=== PATIENT | female | born 1965 | race Caucasian/White ===

== ENCOUNTER → 2019-01-26 12:28 | Outpatient (CLI) | payer BC, SELFPAY ==
[2019-01-26 14:41] LABS: Amphetamine/Metha Screen,Urine Positive ng/mL (<1000); Barbiturates Screen,Urine Negative ng/mL (<200); Benzodiazepines Screen,Urine Negative ng/mL (<200); Cannabinoid Screen,Urine Negative ng/mL (<50); Cocaine Screen,Urine Negative ng/mL (<300); Methadone Screen,Urine Negative ng/mL (<300); Opiate Screen,Urine Negative ng/mL (<300); Phencyclidine Screen,Urine Negative ng/mL (<25)
== END ==
PROVIDERS: Visit Provider Emergency Medicine
DX: F41.9 Anxiety disorder, unspecified (principal)
CPT/HCPCS: 80305

== ENCOUNTER → 2019-03-15 11:02 | Outpatient (CLI) | payer BC, SELFPAY ==
--- NOTE | 2019-03-15 11:04 | MM_ITS ---
MM Dig screening mamm BI w/CAD ORDERING PHYSICIAN : John Raymundo MD PATIENT AGE: 54 years GENDER: Female COMPARISON: . Prior studies have been purged. None available. Going to apartment tilt 4:00 PM INDICATION: Routine screening. Limited history. No new complaints. No hormones Provided HISTORY states she states biopsy scar at 2:30 position right breast Images suggest previous percutaneous biopsy of nodule at inferior central breast Family history. Noncontributory TECHNIQUE: Standard CC and MLO images were obtained. R2 CAD reviewed. FINDINGS: . Moderate asymmetry heterogeneous breast . No prior for for comparison RIGHT BREAST: 14 mm ovoid nodule at the central breast slightly towards 6:00. Appears to be a metallic marker from previous percutaneous biopsy at the superior aspect of this nodule. It is likely a fibroadenoma that has been previously biopsied but I have no information in this regard. Since prior films of encouraged... Suggest patient return for CC, MLO spot views along with full 90 degree view right breast, followed by ultrasound right breast to better reestablish baseline character & size of this nodule for future follow-up. Attempting to obtain prior reports & additional information LEFT BREAST : Region of denser breast towards superior breast/upper outer quadrant. Most likely summation of dense asymmetric fibroglandular elements However this region would also benefit a from follow-up spot CC and MLO view along with full 90 degree and axillary cc view is followed by left breast ultrasound when patient returns. This region labeled X & most likely reflects asymmetric denser fibroglandular tissue-it does seem to dissipate noting from the MLO to the cc view supporting fibroglandular tissue . 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 Previous percutaneous biopsy clip in this area. However no prior studies or information available currently. Therefore Would suggest a follow-up ultrasound and spot views to reestablish size & baseline character (. Also attempting to obtain prior report & records is still available and old [employer] ) Left mammogram . Relative increased density superior left breast, most likely reflects summation of dense asymmetric fibroglandular elements. Unlikely lesion but when patient returns with suggest spot views and ultrasound of this region left breast as well for further evaluation BI-RADS Category: 0 Need Additional Imaging Evaluation RECOMMENDED FOLLOW-UP: IMM - IMMEDIATE FOLLOW-UP RECOMMENDED Recommended Additional spot views and ultrasound both right and left breast (A letter has been sent to the patient regarding results of the study.)
== END ==
PROVIDERS: PCP Nurse Practitioner Family; Visit Provider Emergency Medicine
DX: Z12.31 Encounter for screening mammogram for malignant neoplasm of breast (principal)
CPT/HCPCS: 77067

== ENCOUNTER → 2019-03-27 13:47 | Outpatient (CLI) | payer BC, SELFPAY ==
[2019-03-27 15:46] LABS: Amphetamine/Metha Screen,Urine Positive ng/mL (<1000); Barbiturates Screen,Urine Negative ng/mL (<200); Benzodiazepines Screen,Urine Negative ng/mL (<200); Cannabinoid Screen,Urine Negative ng/mL (<50); Cocaine Screen,Urine Positive ng/mL (<300); Methadone Screen,Urine Negative ng/mL (<300); Opiate Screen,Urine Negative ng/mL (<300); Phencyclidine Screen,Urine Negative ng/mL (<25)
[2019-04-03 11:11] LABS: Benzoylecgonine (GC/MS) 300 ng/mL (Cutoff=150); Cocaine + Metabolite Positive (.)
== END ==
PROVIDERS: Visit Provider Physician Assistant
DX: F90.9 Attention-deficit hyperactivity disorder, unspecified type (principal); Z79.899 Other long term (current) drug therapy
CPT/HCPCS: 80305; 80353

== ENCOUNTER → 2019-04-16 12:22 | Outpatient (CLI) | payer BC, SELFPAY ==
[2019-04-16 14:59] LABS: Amphetamine/Metha Screen,Urine Negative ng/mL (<1000); Barbiturates Screen,Urine Negative ng/mL (<200); Benzodiazepines Screen,Urine Negative ng/mL (<200); Cannabinoid Screen,Urine Negative ng/mL (<50); Cocaine Screen,Urine Negative ng/mL (<300); Methadone Screen,Urine Negative ng/mL (<300); Opiate Screen,Urine Negative ng/mL (<300); Phencyclidine Screen,Urine Negative ng/mL (<25)
== END ==
PROVIDERS: PCP Nurse Practitioner Family; Visit Provider Emergency Medicine
DX: R92.8 Other abnormal and inconclusive findings on diagnostic imaging of breast (principal); F90.9 Attention-deficit hyperactivity disorder, unspecified type
CPT/HCPCS: 80305

== ENCOUNTER → 2019-04-16 14:12 | Outpatient (CLI) | payer BC, SELFPAY | PROVIDERS: Visit Provider Emergency Medicine | DX: Z79.899 Other long term (current) drug therapy (principal) | CPT/HCPCS: 80305 ==

== ENCOUNTER → 2019-06-29 13:24 | Outpatient (CLI) | payer BC, SELFPAY ==
[2019-06-29 14:15] LABS: Amphetamine/Metha Screen,Urine Negative ng/mL (<1000); Barbiturates Screen,Urine Negative ng/mL (<200); Benzodiazepines Screen,Urine Negative ng/mL (<200); Cannabinoid Screen,Urine Negative ng/mL (<50); Cocaine Screen,Urine Negative ng/mL (<300); Methadone Screen,Urine Negative ng/mL (<300); Opiate Screen,Urine Negative ng/mL (<300); Phencyclidine Screen,Urine Negative ng/mL (<25)
[2019-07-10 14:09] LABS: Amphetamines Negative (Cutoff=500)
== END ==
PROVIDERS: Visit Provider Emergency Medicine
DX: Z79.899 Other long term (current) drug therapy (principal)
CPT/HCPCS: 80305; 80324

== ENCOUNTER → 2019-08-27 17:55 | Outpatient (CLI) | payer BC, SELFPAY ==
[2019-08-27 19:04] LABS: Amphetamine/Metha Screen,Urine Positive ng/mL (<1000); Barbiturates Screen,Urine Negative ng/mL (<200); Benzodiazepines Screen,Urine Negative ng/mL (<200); Cannabinoid Screen,Urine Negative ng/mL (<50); Cocaine Screen,Urine Negative ng/mL (<300); Methadone Screen,Urine Negative ng/mL (<300); Opiate Screen,Urine Negative ng/mL (<300); Phencyclidine Screen,Urine Negative ng/mL (<25)
== END ==
PROVIDERS: Visit Provider Emergency Medicine
DX: Z79.899 Other long term (current) drug therapy (principal)
CPT/HCPCS: 80305

== ENCOUNTER → 2020-09-16 17:53 | Outpatient (CLI) | payer BC, SELFPAY ==
[2020-09-16 20:18] LABS: Amphetamine/Metha Screen,Urine Positive ng/ml (<1000); Barbiturates Screen,Urine Negative ng/ml (<200)
[2020-09-16 20:19] LABS: Benzodiazepines Screen,Urine Negative ng/ml (<200); Cannabinoid Screen,Urine Negative ng/ml (<50)
[2020-09-16 20:20] LABS: Cocaine Screen,Urine Negative ng/ml (<300)
[2020-09-16 20:21] LABS: Methadone Screen,Urine Negative ng/ml (<300); Opiate Screen,Urine Negative ng/ml (<300)
[2020-09-16 20:23] LABS: Phencyclidine Screen,Urine Negative ng/ml (<25)
== END ==
PROVIDERS: Visit Provider Emergency Medicine
DX: F90.9 Attention-deficit hyperactivity disorder, unspecified type (principal); Z79.899 Other long term (current) drug therapy
CPT/HCPCS: 80305

== ENCOUNTER → 2020-11-11 16:56 | Outpatient (CLI) | payer BC, SELFPAY ==
[2020-11-11 19:37] LABS: Barbiturates Screen,Urine Negative ng/ml (<200); Benzodiazepines Screen,Urine Negative ng/ml (<200)
[2020-11-11 19:38] LABS: Cannabinoid Screen,Urine Positive ng/ml (<50)
[2020-11-11 19:39] LABS: Cocaine Screen,Urine Negative ng/ml (<300); Methadone Screen,Urine Negative ng/ml (<300)
[2020-11-11 19:40] LABS: Opiate Screen,Urine Negative ng/ml (<300); Phencyclidine Screen,Urine Negative ng/ml (<25)
[2020-11-16 10:27] LABS: Amphetamine Positive (.); Amphetamines Positive (.); Methamphetamine Positive (.)
[2020-11-16 14:08] LABS: Amphetamine (GC/MS) >3000 ng/mL (Cutoff=500); Methamphetamine (GC/MS) >3000 ng/mL (Cutoff=500)
== END ==
PROVIDERS: Visit Provider Emergency Medicine
DX: Z79.899 Other long term (current) drug therapy (principal)
CPT/HCPCS: 80305; 80324

== ENCOUNTER → 2020-12-08 17:22 | Outpatient (CLI) | payer BC, SELFPAY ==
[2020-12-08 18:15] LABS: Amphetamine/Metha Screen,Urine Positive ng/ml (<1000)
[2020-12-08 18:16] LABS: Benzodiazepines Screen,Urine Negative ng/ml (<200)
[2020-12-08 18:17] LABS: Cannabinoid Screen,Urine Negative ng/ml (<50)
[2020-12-08 18:50] LABS: Barbiturates Screen,Urine Negative ng/ml (<200)
[2020-12-08 19:33] LABS: Cocaine Screen,Urine Negative ng/ml (<300)
[2020-12-08 19:37] LABS: Methadone Screen,Urine Negative ng/ml (<300); Opiate Screen,Urine Positive ng/ml (<300); Phencyclidine Screen,Urine Negative ng/ml (<25)
== END ==
PROVIDERS: Visit Provider Emergency Medicine
DX: Z79.899 Other long term (current) drug therapy (principal)
CPT/HCPCS: 80305

== ENCOUNTER → 2020-12-25 10:40 | Outpatient (CLI) | payer BC, SELFPAY ==
--- NOTE | 2020-12-25 10:44 | XR_ITS ---
PROCEDURE: XR FOOT RT MIN 3V CLINICAL INDICATION: foot pain COMPARISON: No exams were available for comparison FINDINGS: No fracture or dislocation. No lytic or blastic change. There is normal mineralization. Minimal osteoarthritic changes are present at the 1st MTP joint with mild bunion formation. Other findings:None. IMPRESSION: Minimal osteoarthritic change 1st MTP joint with mild bunion formation Dictated by: John Rodríguez MD 12/25/2020 11:05 John Rodríguez MD in [place] 12/25/2020 11:05
--- NOTE | 2020-12-25 10:44 | XR_ITS ---
PROCEDURE: XR FOOT LT MIN 3V CLINICAL INDICATION: foot pain COMPARISON: No exams were available for comparison FINDINGS: No fracture or dislocation. No lytic or blastic change. There is normal mineralization. There is mild hallux valgus with mild osteoarthritis at the 1st MTP joint and bunion formation. Other findings:Small calcaneal spur. There is a faint linear density between the mid to proximal aspect of the proximal phalanx of the 2nd and 3rd toe measuring approximately 2 mm and could be due to a small foreign body. Soft tissue calcification would be an additional consideration. IMPRESSION: Mild osteoarthritis with hallux valgus and bunion formation at the 1st MTP joint. Possible foreign body between the 2nd and 3rd toes Dictated by: John Rodríguez MD 12/25/2020 11:07 John Rodríguez MD in [place] 12/25/2020 11:07
== END ==
PROVIDERS: PCP Emergency Medicine; Visit Provider Podiatrist
DX: M79.672 Pain in left foot (principal); M79.671 Pain in right foot
CPT/HCPCS: 73630

== ENCOUNTER → 2021-03-02 19:42 | Outpatient (CLI) | payer BC, SELFPAY ==
[2021-03-02 20:29] LABS: Barbiturates Screen,Urine Negative ng/ml (<200)
[2021-03-02 20:30] LABS: Benzodiazepines Screen,Urine Negative ng/ml (<200)
[2021-03-02 20:31] LABS: Cannabinoid Screen,Urine Positive ng/ml (<50)
[2021-03-02 20:32] LABS: Cocaine Screen,Urine Negative ng/ml (<300); Methadone Screen,Urine Negative ng/ml (<300)
[2021-03-02 20:33] LABS: Opiate Screen,Urine Negative ng/ml (<300)
[2021-03-02 20:34] LABS: Phencyclidine Screen,Urine Negative ng/ml (<25)
[2021-03-20 10:13] LABS: Amphetamine Positive (.); Amphetamine (GC/MS) >3000 ng/mL (Cutoff=500); Amphetamines Positive (.); Methamphetamine Positive (.); Methamphetamine (GC/MS) >3000 ng/mL (Cutoff=500)
== END ==
PROVIDERS: Visit Provider Emergency Medicine
DX: Z79.899 Other long term (current) drug therapy (principal)
CPT/HCPCS: 80305; 80324

== ENCOUNTER → 2021-05-01 17:44 | Outpatient (CLI) | payer BC, SELFPAY ==
[2021-05-01 19:35] LABS: Amphetamine/Metha Screen,Urine Positive ng/ml (<1000)
[2021-05-01 19:36] LABS: Barbiturates Screen,Urine Negative ng/ml (<200)
[2021-05-01 19:37] LABS: Benzodiazepines Screen,Urine Negative ng/ml (<200); Cannabinoid Screen,Urine Negative ng/ml (<50)
[2021-05-01 19:38] LABS: Cocaine Screen,Urine Negative ng/ml (<300); Methadone Screen,Urine Negative ng/ml (<300)
[2021-05-01 19:39] LABS: Opiate Screen,Urine Negative ng/ml (<300)
[2021-05-01 19:40] LABS: Phencyclidine Screen,Urine Negative ng/ml (<25)
== END ==
PROVIDERS: Visit Provider Emergency Medicine
DX: F41.9 Anxiety disorder, unspecified (principal); F90.9 Attention-deficit hyperactivity disorder, unspecified type; K21.9 Gastro-esophageal reflux disease without esophagitis; M19.90 Unspecified osteoarthritis, unspecified site; M54.9 Dorsalgia, unspecified; Z72.0 Tobacco use
CPT/HCPCS: 80305

== ENCOUNTER → 2021-06-24 18:39 | Outpatient (CLI) | payer BC, SELFPAY ==
[2021-06-24 22:19] LABS: Barbiturates Screen,Urine Negative ng/ml (<200)
[2021-06-24 22:20] LABS: Benzodiazepines Screen,Urine Negative ng/ml (<200)
[2021-06-24 22:21] LABS: Amphetamine/Metha Screen,Urine Negative ng/ml (<1000); Cannabinoid Screen,Urine Negative ng/ml (<50)
[2021-06-24 22:22] LABS: Cocaine Screen,Urine Negative ng/ml (<300); Methadone Screen,Urine Negative ng/ml (<300)
[2021-06-24 22:23] LABS: Opiate Screen,Urine Negative ng/ml (<300)
[2021-06-24 22:24] LABS: Phencyclidine Screen,Urine Negative ng/ml (<25)
== END ==
PROVIDERS: Visit Provider Emergency Medicine
DX: F90.9 Attention-deficit hyperactivity disorder, unspecified type (principal)
CPT/HCPCS: 80305

== ENCOUNTER → 2021-07-24 09:16 | Outpatient (CLI) | payer BC, SELFPAY ==
--- NOTE | 2021-07-24 09:17 | XR_ITS ---
PROCEDURE: XR DEXA AXIAL SKELETON CLINICAL HISTORY: screening COMPARISON: No exams were available for comparison FINDINGS: The right hip BMD is 0.743 with a T-score of -1.0. The left hip BMD is 0.723 with a T-score of -1.1. The lumbar spine BMD is 0.907 with a T-score of -1.3. IMPRESSION: This patient is considered osteopenic according to the World Health Organization criteria. Bone density is between 10 and 25 percent below young normal. Fracture risk is moderate. Treatment is advised. Based on these results a follow-up exam is recommended in 2 year. Dictated by: John Rodríguez MD 07/24/2021 15:27 John Rodríguez MD in [place] 07/24/2021 15:27
== END ==
PROVIDERS: PCP Emergency Medicine; Visit Provider Emergency Medicine
DX: Z78.0 Asymptomatic menopausal state (principal)
CPT/HCPCS: 77080

== ENCOUNTER → 2021-09-07 18:39 | Outpatient (CLI) | payer BC, SELFPAY ==
[2021-09-07 19:29] LABS: Amphetamine/Metha Screen,Urine Positive ng/ml (<1000)
[2021-09-07 19:30] LABS: Barbiturates Screen,Urine Negative ng/ml (<200)
[2021-09-07 19:31] LABS: Benzodiazepines Screen,Urine Negative ng/ml (<200)
[2021-09-07 19:32] LABS: Cannabinoid Screen,Urine Negative ng/ml (<50); Cocaine Screen,Urine Negative ng/ml (<300)
[2021-09-07 19:33] LABS: Methadone Screen,Urine Negative ng/ml (<300)
[2021-09-07 19:35] LABS: Opiate Screen,Urine Negative ng/ml (<300); Phencyclidine Screen,Urine Negative ng/ml (<25)
== END ==
PROVIDERS: Visit Provider Emergency Medicine
DX: F90.9 Attention-deficit hyperactivity disorder, unspecified type (principal)
CPT/HCPCS: 80305

== ENCOUNTER → 2021-11-03 16:00 | Outpatient (CLI) | payer BC, SELFPAY ==
[2021-11-03 18:08] LABS: Amphetamine/Metha Screen,Urine Positive ng/ml (<1000)
[2021-11-03 18:09] LABS: Barbiturates Screen,Urine Negative ng/ml (<200); Benzodiazepines Screen,Urine Negative ng/ml (<200)
[2021-11-03 18:10] LABS: Cannabinoid Screen,Urine Negative ng/ml (<50)
[2021-11-03 18:11] LABS: Cocaine Screen,Urine Negative ng/ml (<300); Methadone Screen,Urine Negative ng/ml (<300)
[2021-11-03 18:14] LABS: Opiate Screen,Urine Positive ng/ml (<300)
[2021-11-03 18:15] LABS: Phencyclidine Screen,Urine Negative ng/ml (<25)
== END ==
PROVIDERS: Visit Provider Emergency Medicine
DX: Z79.899 Other long term (current) drug therapy (principal)
CPT/HCPCS: 80305

== ENCOUNTER → 2021-12-30 17:04 | Outpatient (CLI) | payer BC, SELFPAY ==
[2021-12-30 17:29] LABS: Phencyclidine Screen,Urine Negative ng/ml (<25)
[2021-12-30 17:36] LABS: Barbiturates Screen,Urine Negative ng/ml (<200); Benzodiazepines Screen,Urine Negative ng/ml (<200)
[2021-12-30 17:37] LABS: Cannabinoid Screen,Urine Positive ng/ml (<50)
[2021-12-30 17:40] LABS: Cocaine Screen,Urine Negative ng/ml (<300); Opiate Screen,Urine Negative ng/ml (<300)
[2021-12-30 17:41] LABS: Methadone Screen,Urine Negative ng/ml (<300)
[2022-01-13 13:17] LABS: Amphetamine Positive (.); Amphetamine (GC/MS) >3000 ng/mL (Cutoff=500); Amphetamines Positive (.); Methamphetamine Positive (.); Methamphetamine (GC/MS) 9540 ng/mL (Cutoff=500)
== END ==
PROVIDERS: PCP Emergency Medicine; Visit Provider Emergency Medicine
DX: G89.29 Other chronic pain (principal)
CPT/HCPCS: 80305; 80324

== ENCOUNTER → 2022-02-24 17:06 | Outpatient (CLI) | payer BC, SELFPAY ==
[2022-02-24 18:35] LABS: Amphetamine/Metha Screen,Urine Positive ng/ml (<1000); Barbiturates Screen,Urine Negative ng/ml (<200)
[2022-02-24 18:36] LABS: Benzodiazepines Screen,Urine Negative ng/ml (<200)
[2022-02-24 18:37] LABS: Cannabinoid Screen,Urine Negative ng/ml (<50); Cocaine Screen,Urine Negative ng/ml (<300)
[2022-02-24 18:38] LABS: Methadone Screen,Urine Negative ng/ml (<300); Opiate Screen,Urine Negative ng/ml (<300)
[2022-02-24 18:39] LABS: Phencyclidine Screen,Urine Negative ng/ml (<25)
== END ==
PROVIDERS: PCP Emergency Medicine; Visit Provider Emergency Medicine
DX: F41.9 Anxiety disorder, unspecified (principal)
CPT/HCPCS: 80305

== ENCOUNTER → 2022-04-26 07:30 | Outpatient (CLI) | payer BC, SELFPAY ==
[2022-04-26 21:36] LABS: Amphetamine/Metha Screen,Urine Negative ng/ml (<1000)
[2022-04-26 21:37] LABS: Barbiturates Screen,Urine Negative ng/ml (<200)
[2022-04-26 21:38] LABS: Benzodiazepines Screen,Urine Negative ng/ml (<200)
[2022-04-26 21:39] LABS: Cannabinoid Screen,Urine Negative ng/ml (<50); Cocaine Screen,Urine Negative ng/ml (<300)
[2022-04-26 21:40] LABS: Methadone Screen,Urine Negative ng/ml (<300); Opiate Screen,Urine Negative ng/ml (<300)
[2022-04-26 21:41] LABS: Phencyclidine Screen,Urine Negative ng/ml (<25)
== END ==
PROVIDERS: PCP Emergency Medicine; Visit Provider Emergency Medicine
DX: Z79.899 Other long term (current) drug therapy (principal)
CPT/HCPCS: 80305

== ENCOUNTER → 2022-06-23 15:15 | Outpatient (CLI) | payer BC, SELFPAY ==
[2022-06-23 18:00] LABS: Amphetamine/Metha Screen,Urine Negative ng/ml (<1000); Barbiturates Screen,Urine Negative ng/ml (<200)
[2022-06-23 18:01] LABS: Benzodiazepines Screen,Urine Negative ng/ml (<200)
[2022-06-23 18:02] LABS: Cannabinoid Screen,Urine Negative ng/ml (<50)
[2022-06-23 18:04] LABS: Cocaine Screen,Urine Negative ng/ml (<300); Methadone Screen,Urine Negative ng/ml (<300); Opiate Screen,Urine Negative ng/ml (<300)
[2022-06-23 18:05] LABS: Phencyclidine Screen,Urine Negative ng/ml (<25)
== END ==
PROVIDERS: PCP Emergency Medicine; Visit Provider Emergency Medicine
DX: Z79.899 Other long term (current) drug therapy (principal)
CPT/HCPCS: 80305

== ENCOUNTER → 2022-08-18 10:50 | Outpatient (CLI) | payer BC, SELFPAY ==
[2022-08-18 20:38] LABS: Barbiturates Screen,Urine Negative ng/ml (<200)
[2022-08-18 20:41] LABS: Benzodiazepines Screen,Urine Negative ng/ml (<200); Cannabinoid Screen,Urine Positive ng/ml (<50)
[2022-08-18 20:42] LABS: Cocaine Screen,Urine Negative ng/ml (<300); Methadone Screen,Urine Negative ng/ml (<300)
[2022-08-18 20:43] LABS: Opiate Screen,Urine Negative ng/ml (<300)
[2022-08-18 20:47] LABS: Amphetamine/Metha Screen,Urine Positive ng/ml (<1000); Phencyclidine Screen,Urine Negative ng/ml (<25)
== END ==
PROVIDERS: PCP Emergency Medicine; Visit Provider Emergency Medicine
DX: Z79.899 Other long term (current) drug therapy (principal)
CPT/HCPCS: 80305

== ENCOUNTER → 2022-10-13 23:00 | Outpatient (CLI) | payer BC, SELFPAY ==
[2022-10-13 19:05] LABS: Basophils # 0.1 K/mm3 (0-0.2); Basophils % 1.3 % (0.1-2.0); Eosinophils # 0.2 K/mm3 (0.0-0.4); Eosinophils % 1.9 % (0.1-12.0); Hematocrit 42.5 % (37.0-47.0); Lymphocytes # 2.7 K/mm3 (0.7-4.5); Lymphocytes % 30.2 % (10-50); Mean Corpuscular HGB Conc 32.8 g/dL (31.8-35.4); Mean Corpuscular Volume 91.3 fl (81-99); Mean Platelet Volume 9.4 fl (7.4-10.4); Monocytes # 0.7 K/mm3 (0.1-1.0); Monocytes % 7.4 % (1.7-9.3); Neutrophils # 5.2 K/mm3 (1.8-7.8); Neutrophils % 59.2 % (37.0-80.0); Platelet Count 355 K/mm3 (142-424); Red Blood Count 4.66 M/mm3 (4.20-5.40); Red Cell Distribution Width 13.6 % (11.5-17.5); White Blood Count 8.8 K/mm3 (4.8-10.8)
[2022-10-13 19:36] LABS: Amphetamine/Metha Screen,Urine Positive ng/ml (<1000)
[2022-10-13 19:37] LABS: Barbiturates Screen,Urine Negative ng/ml (<200); Benzodiazepines Screen,Urine Negative ng/ml (<200)
[2022-10-13 19:38] LABS: Cannabinoid Screen,Urine Negative ng/ml (<50)
[2022-10-13 19:39] LABS: Cocaine Screen,Urine Negative ng/ml (<300); Methadone Screen,Urine Negative ng/ml (<300)
[2022-10-13 19:40] LABS: Opiate Screen,Urine Negative ng/ml (<300)
[2022-10-13 19:41] LABS: Phencyclidine Screen,Urine Negative ng/ml (<25)
[2022-10-13 21:11] LABS: Alanine Aminotransferase 11 U/L (12-78); Albumin Level 4.2 g/dl (3.5-5.0); Albumin/Globulin Ratio 1.4 (1.1-1.8); Alkaline Phosphatase 108 U/L (38-126); Aspartate Amino Transferase 24 U/L (14-36); Bilirubin,Total 0.4 mg/dl (0.2-1.3); Blood Urea Nitrogen 14 mg/dl (7-17); Calcium 8.8 mg/dl (8.4-10.2); Carbon Dioxide 24 mmol/L (22.0-30.0); Chloride 103 mmol/L (98-107); Chol/HDL Ratio 2.8 (1-3.5); Cholesterol 218 mg/dl (140-200); Estimated Glomerular Filt Rate 65 ml/min (>60); GFR (African American) 78 ML/MIN (>60); Globulin 2.9 g/dL (1.3-3.2); Glucose 126 mg/dl (74-100); HDL Cholesterol 78 mg/dl (40-60); Sodium 136 mmol/L (136-145); Total Protein,Serum 7.1 g/dl (6.3-8.2); Triglycerides 103 mg/dl (30-150); VLDL Cholesterol 21 mg/dL (0-40)
[2022-10-13 21:14] LABS: Anion Gap 13.1 mEq/L (5-15); Potassium 4.1 mmoL/L (3.5-5.1)
[2022-10-13 21:23] LABS: Direct LDL Cholesterol 109.73 mg/dL (100-129)
[2022-10-13 22:08] LABS: 25-OH Vitamin D, Total 40.1 ng/mL (30-100)
== END ==
PROVIDERS: Physician Assistant; PCP Emergency Medicine; Visit Provider Emergency Medicine
DX: Z79.899 Other long term (current) drug therapy (principal); M85.80 Other specified disorders of bone density and structure, unspecified site
CPT/HCPCS: 80053; 80061; 80305; 82306; 84443; 85025

== ENCOUNTER 2022-10-21 08:37 | Day surgery (SDC) | payer BC, SELFPAY ==
[2022-10-14 12:44] VITALS: BMI 25.7
[2022-10-21 08:56] VITALS: BP 150/97; PULSE 84; RESP 18; TEMP 36.8; O2SAT 97
--- NOTE | 2022-10-21 09:15 | P.PN_ITS ---
[facility] Disclaimer: The information contained in this section may have been updated after the patient was seen, as this information can be updated by other users. Medical History ADHD History of anxiety History of restless legs syndrome Hx of osteoarthritis Hx of osteoporosis Hx of seasonal allergies Surgical History History of back surgery History of bilateral tubal ligation Hx of colonoscopy Family History Other Family history of cancer Family history of depression Family history of myocardial infarction Social History Smoking Status: Former smoker smoking status stop date: how long ago did patient quit smokin weeks second hand exposure: No alcohol intake: never substance use type: denies use current occupational status: unemployed Travel in the last 8 weeks: None adopted: No caregiver/support person: No foster care: No household members: spouse housing: house lives independently: Yes marital status: caffeine: Yes special nazanin needs: No agree to transfusion: No do you feel safe at home: Yes victim of physical abuse: No victim of emotional abuse: No victim of sexual abuse: No would you like helpful sources: No [facility] Anesthesia Checklist Patient Identification Patient Identification: Arm Band and Verbal (Name & ) Structural Data Admitted From: Home Planned Operative Procedure/s: Colonoscopy Consent for Planned Operative Procedure(s) Verified: Yes Verified Documents: Surgical Consent NPO Status Verified Time NPO: 00:00 Airway Assessment C-Spine Mobility Assessed: Yes TMJ Mobility Assessed: Yes Dentition: Good Dentition Neurological Assessment Level of Consciousness: Awake, Alert and Appropriate Anesthesia Plan ASA Class: II Anesthesia Type: MAC
[2022-10-21 09:38] VITALS: O2SAT 97
--- NOTE | 2022-10-21 09:55 | HMH.SCOPE ---
Procedure: Date: 10/21/22 Patient Date of :: 1965 Procedure Performed:: Colonoscopy and biopsies Indications:: History of polyps Performing Provider:: Brandon Aguayo MD Referring Provider:: John Raymundo Sedation:: Propofol Procedure:: After placing the patient in the left lateral decubitus position, the colonoscopy was gently inserted into the rectum and under direct visualization advanced to the cecum which was identified by transillumination in the right lower quadrant, identification of the ileocecal valve, appendiceal orifice, and cecal strap. Color, texture, mucosa, and anatomy of the colon were carefully examined with the scope. Findings:: Anal canal: normal Rectum: normal Sigmoid colon: normal without polyps or inflammatory changes Descending colon: normal without polyps or inflammatory changes Splenic flexure: normal Transverse colon: normal without polyps or inflammatory changes Hepatic flexure: normal Ascending colon: normal without polyps or inflammatory changes Cecum: Small 0.25 cm polyp identified and removed with forceps Terminal ileum: not visualized Impression: Cecal polyp Specimens:: Polyp of cecum Recommendations:: Follow up examination in about FIVE years or so, sooner if clinically indicated. Complications:: None Estimated blood obtained (mL): 0
[2022-10-21 09:58] VITALS: BP 119/71; PULSE 80; RESP 14; TEMP 36.2; O2SAT 92
[2022-10-21 10:08] VITALS: BP 131/78; PULSE 81; RESP 17; O2SAT 94
[2022-10-21 10:18] VITALS: BP 138/99; PULSE 73; RESP 17; O2SAT 97
[2022-10-21 10:28] VITALS: BP 140/99; PULSE 75; RESP 15; O2SAT 97
== END 2022-10-21 10:45 | disposition home or self-care (01) ==
PROVIDERS: PCP Emergency Medicine; Visit Provider Internal Medicine Gastroenterology
PROC: 0DJD8ZZ Inspection of Lower Intestinal Tract, Via Natural or Artificial Opening Endoscopic (ICD-10-PCS; CPT 45378; principal; 2022-10-21 09:30)
DX: Z12.11 Encounter for screening for malignant neoplasm of colon (principal); D12.0 Benign neoplasm of cecum; Z86.010 Personal history of colon polyps; Z79.899 Other long term (current) drug therapy
CPT/HCPCS: 45380

== ENCOUNTER → 2022-11-30 23:24 | Outpatient (CLI) | payer BC, SELFPAY ==
[2022-11-30 20:55] LABS: Amphetamine/Metha Screen,Urine Negative ng/ml (<1000)
[2022-11-30 20:57] LABS: Barbiturates Screen,Urine Negative ng/ml (<200); Benzodiazepines Screen,Urine Negative ng/ml (<200)
[2022-11-30 20:58] LABS: Cannabinoid Screen,Urine Negative ng/ml (<50)
[2022-11-30 20:59] LABS: Cocaine Screen,Urine Negative ng/ml (<300); Methadone Screen,Urine Negative ng/ml (<300)
[2022-11-30 21:00] LABS: Opiate Screen,Urine Negative ng/ml (<300)
[2022-11-30 21:01] LABS: Phencyclidine Screen,Urine Negative ng/ml (<25)
== END ==
PROVIDERS: PCP Emergency Medicine; Visit Provider Emergency Medicine
DX: Z79.899 Other long term (current) drug therapy (principal)
CPT/HCPCS: 80305

== ENCOUNTER → 2023-01-26 14:45 | Outpatient (CLI) | payer BC, SELFPAY | PROVIDERS: PCP Emergency Medicine; Visit Provider Emergency Medicine | DX: Z79.899 Other long term (current) drug therapy (principal) ==

== ENCOUNTER → 2023-01-26 20:11 | Outpatient (CLI) | payer BC, SELFPAY ==
[2023-01-26 21:45] LABS: Barbiturates Screen,Urine Negative ng/ml (<200); Benzodiazepines Screen,Urine Negative ng/ml (<200)
[2023-01-26 21:46] LABS: Amphetamine/Metha Screen,Urine Positive ng/ml (<1000); Methadone Screen,Urine Negative ng/ml (<300)
[2023-01-26 21:47] LABS: Cannabinoid Screen,Urine Negative ng/ml (<50)
[2023-01-26 21:48] LABS: Cocaine Screen,Urine Negative ng/ml (<300)
[2023-01-26 21:49] LABS: Opiate Screen,Urine Positive ng/ml (<300); Phencyclidine Screen,Urine Negative ng/ml (<25)
== END ==
PROVIDERS: PCP Emergency Medicine; Visit Provider Emergency Medicine
DX: Z79.899 Other long term (current) drug therapy (principal)
CPT/HCPCS: 80305

== ENCOUNTER → 2023-03-24 16:22 | Outpatient (CLI) | payer BC, SELFPAY ==
[2023-03-24 18:26] LABS: Barbiturates Screen,Urine Negative ng/ml (<200)
[2023-03-24 18:27] LABS: Cocaine Screen,Urine Negative ng/ml (<300)
[2023-03-24 18:28] LABS: Benzodiazepines Screen,Urine Negative ng/ml (<200); Cannabinoid Screen,Urine Positive ng/ml (<50)
[2023-03-24 18:29] LABS: Phencyclidine Screen,Urine Negative ng/ml (<25)
[2023-03-24 18:30] LABS: Methadone Screen,Urine Negative ng/ml (<300); Opiate Screen,Urine Negative ng/ml (<300)
[2023-03-24 18:58] LABS: Amphetamine/Metha Screen,Urine Positive ng/ml (<1000)
== END ==
PROVIDERS: PCP Emergency Medicine; Visit Provider Emergency Medicine
DX: Z79.899 Other long term (current) drug therapy (principal)
CPT/HCPCS: 80305

== ENCOUNTER → 2023-05-18 15:10 | Outpatient (CLI) | payer BC, SELFPAY ==
[2023-05-18 19:42] LABS: Amphetamine/Metha Screen,Urine Negative ng/ml (<1000); Barbiturates Screen,Urine Negative ng/ml (<200)
[2023-05-18 19:43] LABS: Benzodiazepines Screen,Urine Negative ng/ml (<200); Cannabinoid Screen,Urine Negative ng/ml (<50)
[2023-05-18 19:44] LABS: Cocaine Screen,Urine Negative ng/ml (<300)
[2023-05-18 19:45] LABS: Methadone Screen,Urine Negative ng/ml (<300); Opiate Screen,Urine Negative ng/ml (<300)
[2023-05-18 19:46] LABS: Phencyclidine Screen,Urine Negative ng/ml (<25)
== END ==
PROVIDERS: PCP Emergency Medicine; Visit Provider Emergency Medicine
DX: M79.2 Neuralgia and neuritis, unspecified (principal)
CPT/HCPCS: 80305

== ENCOUNTER → 2023-07-13 23:00 | Outpatient (CLI) | payer BC, SELFPAY ==
[2023-07-13 20:03] LABS: Benzodiazepines Screen,Urine Negative ng/ml (<200); Cannabinoid Screen,Urine Negative ng/ml (<50)
[2023-07-13 20:04] LABS: Barbiturates Screen,Urine Negative ng/ml (<200); Cocaine Screen,Urine Negative ng/ml (<300)
[2023-07-13 20:05] LABS: Methadone Screen,Urine Negative ng/ml (<300)
[2023-07-13 20:06] LABS: Opiate Screen,Urine Negative ng/ml (<300); Phencyclidine Screen,Urine Negative ng/ml (<25)
[2023-07-13 21:20] LABS: Amphetamine/Metha Screen,Urine Positive ng/ml (<1000)
== END ==
PROVIDERS: PCP Internal Medicine; Visit Provider Internal Medicine
DX: Z79.899 Other long term (current) drug therapy (principal)
CPT/HCPCS: 80305

== ENCOUNTER 2023-08-17 18:38 | Outpatient (CLI) | payer BC, SELFPAY ==
[2023-08-17 21:16] LABS: Amphetamine/Metha Screen,Urine Negative ng/ml (<1000); Barbiturates Screen,Urine Negative ng/ml (<200); Benzodiazepines Screen,Urine Negative ng/ml (<200); Cannabinoid Screen,Urine Negative ng/ml (<50); Methadone Screen,Urine Negative ng/ml (<300); Opiate Screen,Urine Negative ng/ml (<300); Phencyclidine Screen,Urine Negative ng/ml (<25)
[2023-08-17 22:09] LABS: Cocaine Screen,Urine Negative ng/ml (<300)
[2023-08-23 15:11] LABS: Opiates Negative (Cutoff=100)
== END 2023-08-17 23:59 ==
LOC: LAB.DROPOF 18:38
PROVIDERS: Visit Provider Family Medicine
DX: Z79.899 Other long term (current) drug therapy (principal)
CPT/HCPCS: 80307; 80361; 80365; G0480

== ENCOUNTER 2023-09-06 10:26 | Outpatient (CLI) | payer BC, SELFPAY ==
--- NOTE | 2023-09-06 10:32 | MM_ITS ---
PROCEDURE INFORMATION: Exam: MG Bilateral Screening 3D Mammography Exam date and time: 09/06/2023 10:25 AM Age: 58 years old Clinical indication: Screening examination TECHNIQUE: Imaging protocol: Bilateral Screening tomosynthesis and 2D mammography including computer-aided detection (CAD) when performed. COMPARISON: MG MM DIG SCREENING MAMM BI W/CAD 03/15/2019 11:19 AM FINDINGS: MAMMOGRAPHY: Breast composition: There are scattered areas of fibroglandular density. Mass: No new or suspicious masses Architectural distortion: None. Calcifications: No suspicious calcifications. Asymmetric density: None. Skin thickening: None. Axillary adenopathy: None. IMPRESSION: No mammographic evidence of malignancy. Annual screening is recommended unless otherwise clinically indicated. ASSESSMENT: BI-RADS Category 1: Negative
== END 2023-09-06 23:59 ==
LOC: RAD 10:26
PROVIDERS: Visit Provider Family Medicine
DX: Z12.31 Encounter for screening mammogram for malignant neoplasm of breast (principal)
CPT/HCPCS: 77063; 77067

== ENCOUNTER 2024-09-24 22:12 | Outpatient (CLI) | payer MEDICAID, SELFPAY ==
[2024-09-24 22:40] LABS: Microalbumin/Creatinine Ratio 8.3
[2024-09-24 22:42] LABS: Creatinine,Urine Random 79 mg/dL (Not Estab.)
== END 2024-09-24 23:59 | disposition home or self-care (01) ==
LOC: LAB.DROPOF 22:12
PROVIDERS: PCP Internal Medicine; Visit Provider Internal Medicine
DX: Z00.00 Encounter for general adult medical examination without abnormal findings (principal)
CPT/HCPCS: 82043; 82570

== ENCOUNTER 2024-09-28 12:38 | Outpatient (CLI) | payer MEDICAID, SELFPAY ==
--- NOTE | 2024-09-28 12:50 | MM_ITS ---
PROCEDURE INFORMATION: Exam: MG Bilateral Screening 3D Mammography Exam date and time: 09/28/2024 1:06 PM Age: 59 years old Clinical indication: Screening mammogram TECHNIQUE: Imaging protocol: Bilateral Screening tomosynthesis and 2D mammography including computer-aided detection (CAD) when performed. COMPARISON: 1. MG MM DIG SCREENING MAMM BI W/CAD 09/06/2023 10:25 AM 2. MG MM DIG SCREENING MAMM BI W/CAD 03/15/2019 11:19 AM FINDINGS: MAMMOGRAPHY: Breast composition: There are scattered areas of fibroglandular density. Mass: Stable benign-appearing nodule is present in the right breast. No new or morphologically suspicious nodule has developed to suggest malignancy. Architectural distortion: No new or suspicious architectural distortion. Calcifications: No new or suspicious calcifications are present Asymmetric density: No new or suspicious asymmetric density is present Skin thickening: None. Axillary adenopathy: None. Other findings: Linear density in the upper inner left breast is reportedly related to scar from squamous cell carcinoma removal IMPRESSION: No mammographic evidence of malignancy. Recommend annual screening mammography unless otherwise clinically indicated. ASSESSMENT: BI-RADS category 2: Benign.
[2024-09-28 14:20] LABS: Basophils # 0.1 K/mm3 (0-0.2); Basophils % 1.5 % (0.1-2.0); Eosinophils # 0.3 K/mm3 (0.0-0.4); Eosinophils % 3.3 % (0.1-12.0); Hematocrit 37.6 % (37.0-47.0); Hemoglobin 12.4 g/dL (12.2-16.2); Lymphocytes % 37.3 % (10-50); Mean Corpuscular Hemoglobin 28.6 pg (27.0-31.2); Mean Corpuscular Volume 86.6 fl (81-99); Mean Platelet Volume 11.6 fl (7.4-10.4); Monocytes # 0.7 K/mm3 (0.1-1.0); Monocytes % 8.4 % (1.7-9.3); Neutrophils % 49.1 % (37.0-80.0); Platelet Count 298 K/mm3 (142-424); Red Blood Count 4.34 M/mm3 (4.20-5.40); Red Cell Distribution Width 12.9 % (11.5-17.5); White Blood Count 8.1 K/mm3 (4.8-10.8)
[2024-09-28 14:34] LABS: Albumin Level 4.1 g/dl (3.5-5.0); Chloride 103 mmol/L (98-107); Sodium 137 mmol/L (136-145)
[2024-09-28 14:35] LABS: Potassium 4.3 mmoL/L (3.5-5.1)
[2024-09-28 14:37] LABS: Alanine Aminotransferase 12 U/L (12-78); Albumin/Globulin Ratio 1.8 (1.1-1.8); Anion Gap 10.3 mEq/L (5-15); Aspartate Amino Transferase 31 U/L (14-36); Blood Urea Nitrogen 18 mg/dl (7-17); Carbon Dioxide 28 mmol/L (22.0-30.0); Estimated Glomerular Filt Rate 64 ml/min (>60); GFR (African American) 78 ML/MIN (>60); Globulin 2.3 g/dL (1.3-3.2); Total Protein,Serum 6.4 g/dl (6.3-8.2)
[2024-09-28 14:38] LABS: Alkaline Phosphatase 104 U/L (38-126); Bilirubin,Total 0.5 mg/dl (0.2-1.3); Calcium 9.2 mg/dl (8.4-10.2); Chol/HDL Ratio 2.1 (1-3.5); Cholesterol 160 mg/dl (140-200); Glucose 91 mg/dl (74-100); HDL Cholesterol 75 mg/dl (40-60); Triglycerides 59 mg/dl (30-150); VLDL Cholesterol 12 mg/dL (0-40)
[2024-09-28 14:56] LABS: Triiodothryronine (T3) Uptake 33 % (23.5-40.5)
[2024-09-28 14:57] LABS: Free Thyroxine Index 3.1 ug/dL (5.93-13.13); T4 (Thyroxine) 9.3 ug/dl (5.53-11.0)
[2024-09-28 15:10] LABS: Thyroid Stimulating Hormone 5.53 uIU/mL (0.465-4.68)
[2024-09-28 15:27] LABS: Vitamin B12 868 pg/mL (239-931)
== END 2024-09-28 23:59 | disposition home or self-care (01) ==
PROVIDERS: Nurse Practitioner Obstetrics & Gynecology; PCP Internal Medicine; Visit Provider Internal Medicine
DX: Z12.31 Encounter for screening mammogram for malignant neoplasm of breast (principal); F41.1 Generalized anxiety disorder; F90.9 Attention-deficit hyperactivity disorder, unspecified type; I10 Essential (primary) hypertension
CPT/HCPCS: 36415; 77063; 77067; 80053; 80061; 82607; 82652; 84436; 84443; 84479; 85025

== ENCOUNTER 2024-10-18 09:47 | Emergency (ER) | payer MEDICAID, SELFPAY ==
[2024-10-18 09:56] VITALS: BP 187/88; PULSE 77; RESP 18; TEMP 36.8; O2SAT 99; BMI 26.4
--- NOTE | 2024-10-18 09:56 | ECG_ITS ---
APPROVED REPORT Exam: Resting ECG HR:74 bpm ECG Measurements Heart Rate 74 AXES FL 150 P 67 QRSd 75 QRS 34 QT 401 T 69 QTc 429 Conclusion SINUS RHYTHM POSSIBLE LEFT ATRIAL ENLARGEMENT [-0.1mV P-WAVE IN V1/V2] LOW QRS VOLTAGE IN PRECORDIAL LEADS [QRS DEFLECTION < 1.0 mV IN CHEST LEADS] BORDERLINE ECG Electronically signed by : VAMSI SANDS, 10/19/2024 10:28:13
--- NOTE | 2024-10-18 10:13 | ED_ITS ---
Discharge Plan Disposition Patient Disposition: Home, Self-Care Condition: Good Prescriptions Prescriptions: No Action imiquimod 5 % cream in packet topical methocarbamol 500 mg tablet 500 mg PO HS Qty: 90 3RF omeprazole 20 mg capsule,delayed release(DR/EC) See Rx Instructions .ROUTE .COMPLEX Qty: 90 3RF Dose Instruction: TAKE 1 CAPSULE BY MOUTH EVERY DAY Rx Instructions: TAKE 1 CAPSULE BY MOUTH EVERY DAY ropinirole 1 mg tablet See Rx Instructions .ROUTE .COMPLEX Qty: 90 3RF Dose Instruction: TAKE 1 TABLET BY MOUTH EVERY NIGHT 1 TO 3 HOURS BEFORE BEDTIME Rx Instructions: TAKE 1 TABLET BY MOUTH EVERY NIGHT 1 TO 3 HOURS BEFORE BEDTIME dextroamphetamine-amphetamine 20 mg tablet PO Patient Comments: TAKE 1 TABLET BY MOUTH THREE TIMES A DAY estradiol [Estrace] 0.01 % (0.1 mg/gram) cream 0.25 appful vaginal DAILY Qty: 42.5 1RF Rx Instructions: Throw applicater away and apply a blueberry sized amount to PV Premarin 0.625 mg/gram cream 0RF alendronate 10 mg tablet 10 mg PO DAILY Qty: 30 2RF Vraylar 3 mg capsule 3 mg PO DAILY Qty: 90 3RF ascorbic acid (vitamin C) 1,000 mg tablet 1 g PO DAILY 90 Days Qty: 90 3RF cholecalciferol (vitamin D3) 25 mcg (1,000 unit) capsule 25 mcg PO DAILY Qty: 90 3RF multivitamin,tx-minerals Capsule 1 cap PO DAILY Qty: 90 3RF tizanidine 2 mg tablet 2 mg PO TID PRN (Reason: muscle spasticity) Qty: 90 3RF semaglutide (weight loss) 0.25 mg/0.5 mL pen injector 0.25 mg SQ WEEKLY Qty: 2 0RF Rx Instructions: administer weeks 1 through 4 of therapy levothyroxine 25 mcg tablet 25 mcg PO DAILY Qty: 90 3RF amlodipine [Norvasc] 10 mg tablet 10 mg PO DAILY Qty: 30 2RF loratadine 10 mg tablet 10 mg PO DAILY Rx Instructions: TAKE 1 TABLET BY MOUTH EVERY DAY Referrals Follow up/Referrals: Natanael Nguyen DO [Primary Care Provider] - See instructions Activity Restrictions/Add. Instructions Additional Instructions/Restrictions: Please follow-up with your primary care doctor. Please return with any new or worsening symptoms. Clinical Impressions Clinical Impression: Asymptomatic hypertension Print Language Print Language: Bahraini Discharge ED Provider: Danial Mccann General Adult HPI General Chief complaint: Recheck/Abnormal Lab/Rx Stated complaint: high b/p, sent by Dandy Lagunas Time Seen by Provider: 10/18/24 10:13 Mode of Arrival: Ambulatory Source of Information: Patient Description of Symptoms (Recalled from ER Triage Doc. by RN): pt hypertensive. sent over from cardiology. History of Present Illness HPI narrative: Patient presents for evaluation of hypertension. She reports she was sent from cardiology clinic. She reports her home blood pressures have been reading in the 180s to 200s systolic. She denies any symptoms at this time. Denies any headache, nausea, chest pain, palpitations, dysuria, abdominal pain, numbness, tingling, confusion, medication changes, or new medications. Patient chiefly voices request to be discharged at this time. She reports to me her primary care provider prescribed new antihypertensive. Please note that above description of symptoms, in this electronic medical record under categorization of recalled from ER triage doctor by RN are reflective of an initial nursing assessment, however, is not reflective of my full history and physical exam that was personally taken and clarified. Consequentially, this preceding description of symptoms, which may include the patient's categorized chief complaint in the EMR, do not reflect my personal clinical impression, and the ultimate description of history of present illness and patient stated complaints should be deferred to this section of the note. Unless stated otherwise or congruent with this section of the note, additional signs, symptoms, or incongruence should be interpreted as inaccurate with my clinical impression. Related Data Home Medications ?Medication ?Instructions ?Recorded ?Confirmed loratadine 10 mg tablet 10 mg PO DAILY allergies 06/21/22 10/18/24 imiquimod 5 % topical cream packet topical 09/24/24 10/18/24 dextroamphetamine-amphetamine 20 PO 09/27/24 10/18/24 mg tablet Previous Rx's ?Medication ?Instructions ?Recorded cariprazine 3 mg capsule (Vraylar) 3 mg PO DAILY Depression #90 caps 12/12/23 methocarbamol 500 mg tablet 500 mg PO HS #90 tabs 09/25/24 omeprazole 20 mg capsule,delayed See Rx Instructions .Route 09/25/24 release .COMPLEX #90 caps ropinirole 1 mg tablet See Rx Instructions .Route 09/25/24 .COMPLEX #90 tabs ascorbic acid (vitamin C) 1,000 mg 1 g PO DAILY 90 days #90 tabs 09/26/24 tablet cholecalciferol (vitamin D3) 25 25 mcg PO DAILY Supplement #90 caps 09/26/24 mcg (1,000 unit) capsule multivitamin,tx-minerals 1 cap PO DAILY #90 caps 09/26/24 estradiol 0.01% (0.1 mg/gram) 0.25 appful vaginal DAILY #42.5 09/27/24 vaginal cream (Estrace) grams semaglutide (weight loss) 0.25 0.25 mg (0.5 mL) SQ WEEKLY #2 mL 09/27/24 mg/0.5 mL subcutaneous pen injector tizanidine 2 mg tablet 2 mg PO TID PRN muscle spasticity 09/27/24 #90 tabs alendronate 10 mg tablet 10 mg PO DAILY #30 tabs 10/08/24 levothyroxine 25 mcg tablet 25 mcg PO DAILY #90 tabs 10/09/24 amlodipine 10 mg tablet (Norvasc) 10 mg PO DAILY #30 tabs 10/18/24 Allergies Allergy/AdvReac Type Severity Reaction Status Date / Time Penicillins Allergy Intermediate Hives Verified 10/18/24 09:20 [facility] Disclaimer: The information contained in this section may have been updated after the patient was seen, as this information can be updated by other users. Medical History Hx of osteoporosis Hx of osteoarthritis Hx of seasonal allergies History of restless legs syndrome History of anxiety ADHD Surgical History Hx of colonoscopy History of back surgery History of bilateral tubal ligation Family History Other Family history of cancer Family history of depression Family history of myocardial infarction Social History Smoking Status: Former smoker tobacco type: cigarettes smoking status stop date: how long ago did patient quit smokin weeks second hand exposure: No alcohol intake: never substance use type: denies use current occupational status: unemployed Travel in the last 8 weeks: None adopted: No caregiver/support person: No foster care: No household members: spouse housing: house lives independently: Yes marital status: caffeine: Yes special nazanin needs: No agree to transfusion: No do you feel safe at home: Yes victim of physical abuse: No victim of emotional abuse: No victim of sexual abuse: No would you like helpful sources: No Other Medical History Have you received the Pneumonia Vaccine: No ROS Obtained: Yes other As per HPI Physical Exam General General appearance: alert and in no apparent distress Head Head exam: atraumatic and normocephalic Eye Eye exam: Present normal appearance Neck Neck exam: Present normal inspection Chest Chest inspection: Present normal inspection and symmetric chest wall rise Respiratory Respiratory exam: Present normal lung sounds bilaterally; Absent respiratory distress Cardiovascular Cardiovascular exam: Present regular rate and normal rhythm Abdominal Exam Abdominal exam: Present soft Neurological Exam Neurological exam: Present alert and oriented X3 Psychiatric Psychiatric exam: Present normal affect and normal mood Skin Skin exam: Present warm and dry Medical Decision Making Medical Records Medical records reviewed: Yes I reviewed the patient's medical records. Screening: Per USPSTF and CDC recommendations, given the prevalence of disease in our region, it is our hospital?s policy to screen for HIV and viral Hepatitis for all patients aged 18 and over and those with ongoing risk factors. Alexei Inquiry Pt receiving controlled substance: No Vital Signs: 10/18/24 09:56 10/18/24 11:06 Temperature 98.3 F 98.4 F Temperature Source Oral Pulse Rate 77 Pulse Rate [Right] 77 Respiratory Rate 18 18 Blood Pressure 181/87 H Blood Pressure [Right Arm] 187/88 H Blood Pressure Mean [Right Arm] 121 02 Sat by Pulse Oximetry 99 Oxygen Delivery Method Room Air Orders (Tests/Meds): ORDERS Category Date Time Status HIV Combo Stat Lab 10/18/24 10:00 Ordered Hepatitis C Ab Qual. W/ RFX Stat Lab 10/18/24 10:00 Ordered Medical Decision Narrative: Patient with history and exam per above presenting for evaluation of asymptomatic hypertension. After shared decision making we will not proceed with any further workup given absolutely no symptoms at this time. Hypertension downtrending in the emergency department. Return precautions given. Critical Care Critical Care Time Critical Care Time: No
[2024-10-18 11:06] VITALS: BP 181/87; PULSE 77; RESP 18; TEMP 36.9; O2SAT 99
== END 2024-10-18 11:06 | disposition home or self-care (01) ==
PROVIDERS: Emergency Provider Emergency Medicine; PCP Internal Medicine
DX: I10 Essential (primary) hypertension (principal); R03.0 Elevated blood-pressure reading, without diagnosis of hypertension; Z87.891 Personal history of nicotine dependence
CPT/HCPCS: 93005; 99283

== ENCOUNTER 2024-11-02 13:47 | Outpatient (CLI) | payer MEDICAID, SELFPAY ==
--- NOTE | 2024-11-02 13:45 | CA_ITS ---
APPROVED REPORT EXAM: Comprehensive 2D, Doppler, and color-flow Echocardiogram Psych Assistant: Kathy Castellon RDCS Ht: 5 ft 6 in Wt: 164lbs BSA: 1.84 BP: 202/98 mmHg Indications: HTN,ABN EKG M-Mode Dimensions RVDd 2.12 cm (0.9-2.6) LA Diam 3.20 cm (1.9-4.0) LVDd 4.47 cm (3.5-5.7) LVDs 2.77 cm (3.5-5.7) IVSd 1.02 cm (0.6-1.1) PWd 0.83 cm (0.6-1.1) EF (Teich) 68.40% FS 38.00% EDV (Teich) 91.00 mL ESV (Teich) 28.80 mL LV Diastology E Decel Time 177 (160-240 msec) E/A Ratio 0.5 Mitral Valve MV E Max Steven. 48.0 (40-130 cm/s) MV A Velocity 95.0 (40-130 cm/s) E/A Ratio 0.51 MV PHT 52.0 ms Left Ventricle The left ventricle is normal size. The left ventricular systolic function is normal. The left ventricular ejection fraction is within the normal range. There is increased overall thickness. There is normal LV segmental wall motion. The left ventricular diastolic function is normal. LVEF is 55%. Right Ventricle Right ventricle is mildly dilated. The right ventricular systolic function is normal. Atria Left atrium is mildly dilated. Right atrium is mildly dilated. There is no Doppler evidence of interatrial shunt. Aortic Valve Aortic valve is mildly thickened. There is no aortic valvular stenosis. No aortic regurgitation is present. Mitral Valve The mitral valve leaflets are mildly thickened. No evidence of mitral valve stenosis. Mild mitral regurgitation. Tricuspid Valve Tricuspid valve is grossly normal in structure and function. Trace tricuspid regurgitation. There is insufficient TR jet to estimate RVSP. Pulmonic Valve The pulmonary valve is normal in structure. Trace pulmonic regurgitation. Great Vessels The aortic root is normal in size. IVC is normal in size and collapses >50% with inspiration. Pericardium There is no pericardial effusion. Other Information Study Quality: Fair Conclusion Normal biventricular systolic function. Mild RV dilation. Biatrial dilation. Mild MR. Electronically signed by : Rosa Lieberman MD 11/12/2024 23:18:15
== END 2024-11-02 23:59 | disposition home or self-care (01) ==
LOC: RT 13:47
PROVIDERS: PCP Family Medicine; Visit Provider Nurse Practitioner Family
DX: I51.7 Cardiomegaly (principal); I34.0 Nonrheumatic mitral (valve) insufficiency; R94.31 Abnormal electrocardiogram [ECG] [EKG]
CPT/HCPCS: 93306

== ENCOUNTER 2024-12-20 14:33 | Outpatient (CLI) | payer MEDICAID, SELFPAY ==
[2024-12-20 20:24] LABS: Thyroid Stimulating Hormone 1.65 uIU/mL (0.465-4.68)
== END 2024-12-20 23:59 | disposition home or self-care (01) ==
LOC: LAB.DROPOF 12-21 11:13
PROVIDERS: PCP Family Medicine; Visit Provider Family Medicine
DX: E03.9 Hypothyroidism, unspecified (principal)
CPT/HCPCS: 84439; 84443

== ENCOUNTER 2025-01-23 09:06 | Outpatient (CLI) | payer MEDICAID, SELFPAY ==
--- OUTSIDE RECORDS SUMMARY | 2025-01-14 09:00 | XMS_ITS | Encounter Summary ---
Author Organization Healthcare Address [address] [place] [address] Care Team Providers Care Export Freight Manager Name Role Phone Pcp, No Primary Care Provider Unavailrenetta e Fiona Cummings DMD Unavailable Escobar Jaimes Unavailable Unavailable Reason for Visit * Reason Comments Case Management Starting my partial Encounter Details Date Type Department Care Team ([facility] st Contact Info) Description 01/14/2025 9:00 AM EDT Office Visit [facility] [address] [place] [address] Escobar Jaimes Edentulism (Primary Dx) Social History Tobacco Use Types Packs/Day Years Used Date Smoking Tobacco: Former Cigarettes 0.1 45 Q uit: 1979 Smokeless Tobacco: Never Comments:Planning on quittin g Jul 08, 2023 Alcohol Use Standard Drinks/Week Comments Not Currently 1 (1 standard drink = 0.6 oz pur e alcohol) Infrequent Comments Unknown Sex and Gender Information Value Date Recorded Sex Assigned at Not on file Legal Sex Female 6:30 PM EDT Gender Identity Not on file Sexual Orientation Not on file documented as of this encounter Last Filed Vital Signs Vital Sign Reading Time Taken Comments Blood Pressure 148/87 01/14/2025 9:45 AM EDT Pulse 74 01/14/2025 9:45 AM EDT Temperature - - Respiratory Rate - - Oxygen Saturation - - Inhaled Oxygen Concentration - - Weight - - Height - - Body Mass Index - - documented in this encounter Miscellaneous Notes * Progress Notes - Escobar Jaimes - 01/14/2025 9:00 AM EDT SHAPED Note (S) Section: Prosthodontics Coverage: Dr. Tapia (H) Health: Pt was admitted to ER for high blood pressure in October 2024 per other physician. Pt reported to have two EKGs completed and the results came back good . Pt is still seeing a cardiologistto ensure that her heart and BP is in good condition. Pt is on new medication for thyroid condition. Vitals: 01/14/25 0945 BP: (!) 148/87 Pulse: 74 (A) Assessment: Chief Complaint Patient presents with Case Management Starting my partial (P/E) Planned and Executed Treatment: Pt presented for treatment planning for maxillary CD and mandibular RPD. Plan is to scan the preliminary impression casts for baseplates and then completion of wax rims. Panoramic xray was taken for insurance and extraction site verification. Pt was advised to let her physician know that she is good to continue her medication for osteoporosis. Pt left in goodspirits and excited to continue care. (D) Disposition: Pt to return for wax try/jaw relations/final impression with Escobar Jaimes Cosigned by Marcello Bryson DDS at 01/16/2025 9:12 AM EDT Associated attestation - Marcello Bryson DDS - 01/16/2025 9:12 AM EDT I was present with the dental student for the service. I personally examined the patient, authorized the procedures that were performed, and evaluated the performance of the procedure after it was completed. I have verified all of the dental student???s documentation for this encounter. documented in this encounter Plan of Treatment Upcoming Encounters Date Type Department Care Team (Late st Contact Info) Description 03/15/2025 9:00 AM EDT [facility] [address] [place] [phone] Escobar Jaimes documented as of this encounter Procedures Procedure Name Priority Date/Time Associated Diagnosis Comments PANORAMIC FILM -- NO CHARGE Routine 01/14/2025 9:00 AM EDT Edentulism TREATMENT PLAN Routine 01/14/2025 9:00 AM EDT Edentulism documented in this encounter Visit Diagnoses Diagnosis Edentulism- Primary documented in this encounter Additional Health Concerns Assessment Noted Time A Body Mass Index follow-up plan has been documented for the patient 11/24/2023 4:30 PM EDT documented as of this encounter Care Teams Export Freight Manager Relationship Specialty Start Date End Date Pcp, No [address] [place] [address] PCP - General Family Medicine 06/20/23 Fiona Cummings, REZA [address] [address] Dentist 06/21/23 Escobar Jaimes Dental Student Dental Lap Regulator 12/21/23 documented as of this encounter
--- NOTE | 2025-01-23 09:00 | XR_ITS ---
FINAL REPORT CLINICAL HISTORY: osteopenia COMPARISON: None FINDINGS: Using L1-4, the bone mineral density of the spine is 0.879 g/cm2, corresponding to T-score of -1.5. Using the left hip, the bone mineral density of the femoral neck is 0.640 g/cm2, corresponding to a T-score of -1.9. Using the right hip, the bone mineral density of the femoral neck is 0.676 g/cm2, corresponding to a T-score of -1.6. NOTE: T-score: Standard deviation compared with peak bone mass of young adult mean. *Following the recommendations of the International Society of Bone densitometry, classification of hip BMD is based on the lower of two T-scores; total hip or femoral neck. IMPRESSION: Diminished bone mineral density of the bilateral hips and lumbar spine, consistent with osteopenia. Reviewed, Interpreted and Dictated by Alfredo Aragon MD Transcribed by Maria Fernanda Garcia Authenticated and . [facility]
--- OUTSIDE RECORDS SUMMARY | 2025-01-23 09:12 | XMS_ITS | Clinical Summary ---
Author Organization Healthcare Address [address] [place] [address] Care Team Providers Care Motor Equipment Commanding Officer Name Role Phone Pcp, No Primary Care Provider Unavailrenetta e Fiona Cummings DMD Unavailable Escobar Jaimes Unavailable Unavailable Allergies Active Allergy Reactions Criticality Noted Date Comments Penicillins Hives,Swelling High 06/20/2023 Octacosanol Runny nose Low 06/20/2023 Medications amphetamine-dex troamphetamine (Adderall) 20 MG tablet Take 1 tablet by mouth 3 times a day. 0 Active Cholecalciferol (Vitamin D3) 20 MCG (800 UNIT) tablet Take 1,000 mg by mouth 1 (one) time each day. Active alpha tocopherol (Vitamin E) 1000 units capsule Take 1,000 mg by mouth 1 (one) time each day. Active HYDROcodone-nusrat taminophen ([place]) 7.5-325 MG tablet Take 1 tablet (7.5 mg of hydrocodone) by mouth 1 (one) time each day. 2 Active cariprazine (Vraylar) 1.5 MG capsuleIndicati ons:anxiety, depression Take 2 capsules (3 mg) by mouth daily. Active alendronate (Fosamax) 40 MG tabletIndicatio ns:Osteoporosis Take 1 tablet (40 mg) by mouth every 7 (seven) days. Take in the morning with a full glass of water, on an empty stomach, and do not take anything else by mouth or lie down for the next 30 min. 3 Active omeprazole (PriLOSEC) [address] capsuleIndicati ons:Gastroesoph ageal Reflux Disease,Peptic Ulcer Take 1 capsule (20 mg) by mouth daily. Do not crush or chew. Active rOPINIRole (Requip) 2 MG tabletIndicatio ns:Restless Leg Syndrome Take 1 tablet (2 mg) by mouth as needed (taken as needed). 0 Active gabapentin (Neurontin) 300 MG capsuleIndicati ons:Restless Leg Syndrome Take 1 capsule (300 mg) by mouth 1 (one) time each day. 3 Active tiZANidine (Zanaflex) 2 MG capsule Take 1 capsule (2 mg) by mouth as needed for muscle spasms. Active cyanocobalamin 500 MCG tablet Take 1 tablet (500 mcg) by mouth 2 (two) times a day. Active montelukast (Singulair) 10 MG tablet Take 1 tablet (10 mg) by mouth nightly. Active chlorhexidine (Peridex) 0.12 % solution Use 15 mL in the mouth or throat 2 (two) times a day. 473 mL 4 Active Additional Information Patient not taking.Reason: Not needed anymore, Reported on 01/14/2025 lisinopril 5 MG tabletIndicatio ns:Hypertension Take 1 tablet (10 mg) by mouth 1 (one) time each day. Doctor prescribed lower mg due to pt passing out. 3 Active chlorthalidone (Hygroton) 25 MG tabletIndicatio ns:Edema,Hypert ension Take 1 tablet (25 mg) by mouth daily. Active Multiple Vitamins-Minera ls (multivitamin with minerals) tablet Take 1 tablet by mouth daily. 5 Active amLODIPine (Norvasc) 2.5 MG tabletIndicatio ns:Hypertension Take 1 tablet (2.5 mg) by mouth daily. Active levothyroxine (Synthroid, Levoxyl) 25 MCG tablet Take 1 tablet by mouth daily before breakfast. Take with a glass of water 5 Active Active Problems Problem Noted Date Diagnosed Date Edentulism 01/14/2025 Partial edentulism, class I 10/02/2024 Active dental caries 05/24/2024 Encounters Date Type Department Care Team Description 01/14/2025 9:00 AM EDT [facility] [address] [place] [phone] Escobar Jaimes Edentulism (Primary Dx) 01/14/2025 Travel from Last 3 Months Family History Medical History Relation Name Comments Cancer Brother Heart disease Father Relation Name Status Comments Brother Father Social History Tobacco Use Types Packs/Day Years Used Date Smoking Tobacco: Former Cigarettes 0.1 45 Q uit: 1979 Smokeless Tobacco: Never Tobacco Cessation:Counseling Given: Not Answered Comments:Planning on quitting Jul 08, 2023 Alcohol Use Standard Drinks/Week Comments Not Currently 1 (1 standard drink = 0.6 oz pur e alcohol) Infrequent Comments Unknown Sex and Gender Information Value Date Recorded Sex Assigned at Not on file Legal Sex Female 6:30 PM EDT Gender Identity Not on file Sexual Orientation Not on file Last Filed Vital Signs Vital Sign Reading Time Taken Comments Blood Pressure 148/87 01/14/2025 9:45 AM EDT Pulse 74 01/14/2025 9:45 AM EDT Temperature - - Respiratory Rate - - Oxygen Saturation 99% 11/18/2023 10: 09 AM EDT Inhaled Oxygen Concentration - - Weight 73.8 kg (162 lb 11.2 oz) 11/14/2023 2:12 PM EDT Height 167.6 cm (5' 6 ) 11/24/2023 4:01 PM EDT Body Mass Index 26.26 11/14/2023 2:12 PM EDT Plan of Treatment Upcoming Encounters Date Type Department Care Team (Late st Contact Info) Description 03/15/2025 9:00 AM EDT Office Visit [facility] [address] [place] [address] Escobar Jaimes Health Maintenance Due Date Last Done Comments Dental Prophylaxis 1966 [facility]-Depression Screening 1966 [facility]-HIV Screening 1966 [facility]-Hepatitis C Screening 1966 [facility]-Infant/Child/Adol SDOH Screenings 1966 [facility]- SDOH Screenings 02/02/1984 [facility]-Adult SDOH Screenings 02/02/1984 [facility]-DTaP,Tdap,and Td Vaccine s (1 - Tdap) 1985 [facility]-Hepatitis B Vaccines (1 of 3 - 19+ 3-dose series) 1985 [facility]-Pap Smear 1987 [facility]-Cervical Cancer Screening 02/02/1996 [facility]-HPV/Cotest 02/02/1996 CT Colonography 2011 Colonoscopy 2011 FIT-DNA 2011 FIT 2011 FOBT 2011 Sigmoidoscopy 2011 [facility]-Colorectal Cancer Screening 2011 [facility]-Breast Cancer Screening 02/02/2016 03/2 01/2012, 10/27/2011 [facility]-Pneumococcal Vaccine: 50 + Years (1 of 1 - PCV) 02/02/2016 [facility]-Zoster Vaccines (1 of 2) 02/02/2016 Dental Oral Exam 12/20/2023 06/20/2023 [id number] Vaccine ( season) 2024 06/22/2022, 11/21/2020, 10/29/2020 Dental X-Ray: Bitewings 06/21/2024 06/20/2023 Dental X-Ray: Full Mouth 06/21/2026 06/20/2023 [facility]-Obesity Intervention Completed 024, 11/18/2023 [facility]-Influenza Vaccine Completed 09/24/2024 , 06/24/2021, 05/18/2017 HPV Vaccines Aged Out No longer eligi ble based on patient's age to complete this topic [facility]-HIB Vaccines Aged Out No longer e ligible based on patient's age to complete this topic [facility]-Hepatitis A Vaccines Aged Out No longer eligible based on patient's age to complete this topic [facility]-IPV Vaccines Aged Out No longer e ligible based on patient's age to complete this topic [facility]-Rotavirus Vaccines Aged Out No lo nger eligible based on patient's age to complete this topic Procedures Procedure Name Priority Date/Time Associated Diagnosis Comments PANORAMIC FILM -- NO CHARGE Routine 01/14/2025 9:00 AM EDT Edentulism TREATMENT PLAN Routine 01/14/2025 9:00 AM EDT Edentulism PANORAMIC RADIOGRAPHIC IMAGE Routine 06/20/2023 1:30 PM EST Dental caries BITEWINGS - 2 RADIOGRAPHIC IMAGES Routine 06/20/2023 1:30 PM EST Dental caries COMPREHENSIVE ORAL EVALUATION - NEW OR ESTABLISHED PATIENT Routine 06/20/2023 1:30 PM EST Dental caries from Last 3 Months or Most Recently Relevant to Health Maintenance Insurance [employer] [facility] [place] [address] [facility] [place] [address] Care Teams Motor Equipment Commanding Officer Relationship Specialty Start Date End Date Pcp, No [address] [place] [address] PCP - General Family Medicine 06/20/23 Fiona Cummings, REZA [address] [phone] Dentist 06/21/23 Escobar Jaimes Dental Student Dental Managed Care Nurse 12/21/23
--- OUTSIDE RECORDS SUMMARY | 2025-01-23 09:12 | XMS_ITS | Encounter Summary ---
Author Organization Healthcare Address [address] [place] [address] Care Team Providers Care Apartment Maintenance Supervisor Name Role Phone Pcp, No Primary Care Provider Unavailabl e Fiona Cummings DMD Unavailable [phone] Escobar Jaimes Unavailable Unavailable Encounter Details Date Type Department Care Team (Latest Contact Info) Description 01/14/2025 Travel Social History Tobacco Use Types Packs/Day Years [...] on file documented as of this encounter Plan of Treatment Upcoming Encounters Date Type Department Care Team (Late st Contact Info) Description 03/15/2025 9:00 AM EDT Office Visit [facility] [address] [place] [address] Escobar Jaimes documented as of this encounter Visit Diagnoses Not on filedocumented in this encounter Additional Health Concerns Assessment Noted Time A Body Mass Index follow-up plan has been documented for the patient 11/24/2023 4:30 PM EDT documented as of this encounter Care Teams Apartment Maintenance Supervisor Relationship Specialty Start Date End Date Pcp, Katya [address] [place] [address] PCP - General Family Medicine 06/20/23 Fiona Cummings, REZA [address] [address] Dentist 06/21/23 Escobar Jaimes Dental Student Dental Wash House Worker 12/21/23 documented as of this encounter
--- OUTSIDE RECORDS SUMMARY | 2025-01-23 09:12 | XMS_ITS | Data Portability ---
Author Organization [facility] ADMIN Address [address] [place] [phone] Assessment No assessment recorded. Plan of Treatment Reminders Order Date Submit Date Provider Last Modified By Organization Details Last Modified Time Details Appointments None record ed. Lab None record ed. Referral None record ed. Procedures None record ed. Surgeries None record ed. Imaging None record ed. Medication Orders None record ed. Patient TargetsNo targets recorded. Patient InstructionsNo instructions recorded. Reason for Referral None Reported. Results Created Date Observation Date Name Description Value Unit Range Abnormal Flag Note LastModifiedBy Organization Detail LastModifiedTime 09/05/1909/05/2024 audio gram No observ ation record ed. [email or web address] Not Available 2024 14:46:31 Result Notes None recorded. Problems Name Problem SNOMED Code Status Onset Date Resolution Date Notes Provider Name and Address Organization Details Recorded Time Sensorineural hearing loss [id number] Active 2024 RAULITO PETERSEN, AUD [address] [facility], [place], [address] , [facility] & [place] 14:44:16 Problem Notes None recorded. Medical Equipment None Reported. Medications Name Sig Start Date Stop Date Status Note LastModified by Organization Details LastModified Time ropinirole 1 mg tablet TAKE 1 TABLET BY MOUTH EVERY NIGHT 1 TO 3 HOURS BEFORE BEDTIME active Not Available Not Available No t Available tizanidine 2 mg tablet active Not Available Not Available No t Available alendronate 70 mg tablet active Not Available Not Available Not Available fluorouracil 5 % topical cream PLEASE SEE ATTACHED FOR DETAILED DIRECTIONS active Not Available Not Available N ot Available chlorthalido ne 25 mg tablet TAKE 1 TABLET BY MOUTH EVERY DAY FOR HYPERTENSIO N active Not Available Not Available No t Available hydrocodone 10 mg-acetamino phen 325 mg tablet TAKE 1 TABLET BY MOUTH THREE TIMES A DAY NEEDED FOR PAIN active Not Available Not Available No t Available dextroamphet amine-amphet amine 30 mg tablet TAKE 1 TABLET BY MOUTH TWICE A DAY active Not Available Not Available No t Available hydrocodone 7.5 mg-acetamino phen 325 mg tablet TAKE 1 TABLET BY MOUTH EVERY 6 HOURS NEEDED FOR PAIN (MUST LAST 30 DAYS) active Not Available Not Available No t Available dextroamphet amine-amphet amine 20 mg tablet TAKE 1 TABLET BY MOUTH THREE TIMES A DAY active Not Available Not Available Not Available lisinopril 10 mg tablet TAKE 1 TABLET BY MOUTH EVERY DAY active Not Available Not Available No t Available lisinopril 30 mg tablet TAKE 1 TABLET BY MOUTH EVERY DAY active Not Available Not Available No t Available omeprazole 20 mg capsule,karishma yed release TAKE 1 CAPSULE BY MOUTH EVERY DAY active Not Available Not Available No t Available ibuprofen 600 mg tablet TAKE 1 TABLET BY MOUTH EVERY 6 HOURS IF NEEDED FOR MILD PAIN FOR UP TO 7 DAYS active Not Available Not Available No t Available cholecalcife rol (vitamin D3) 25 mcg (1,000 unit) capsule active Not Available Not Available Not Available chlorhexidin e gluconate 0.12 % mouthwash SWISH WITH 15ML IN MOUTH OR THROAT AND SPIT 2 TIMES A DAY active Not Available Not Available Not Available Vraylar 3 mg capsule TAKE 1 CAPSULE BY MOUTH EVERY DAY active Not Available Not Available No t Available [facility] COVID-19 Antigen Rapid Home Test kit active Not Available Not Available Not Available Vitals None Recorded Social History None recorded. Functional Status None recorded. Mental Status None recorded. Family History Nothing Reported. Medical History No medical history recorded. Gynecological HistoryNo gynecological history recorded. Obstetrics History GPAL:G 0 P 0 0 0 0 Past Encounters Encounter ID Performer Location Encounter Start Date Encounter Closed Date Diagnosis/Indication Diagnosis SNOMED-CT Code Diagnosis ICD10 Code Diagnosis Note [id number] SERAFIN WILLSON [facility] [facility], [place] [address] 09/05/2024 14:33:51 09/05/2024 14:46:40 Sensorineural hearing loss 31864829 H90.3 Health Concerns Section Related Observation LastModified by Organization Detai ls LastModified Time None Recorded Concern Status LastModified by Organization Details LastModified Time None Recorded Advance Directives Directive None Recorded Payers Insurance Date Sequence Insurance Name Policy Number Policy Garcia Covered Member ID Garcia Member ID Guarantor Name 09/05/2024 1 [facility] ([facility]ICA[facility]PLAC[facility] - HMO) Pushpa Avila [id number] Notes Date Note Type Note Provider Name and Address Organization Details Recorded Time 09/05/2024 text/html Ms. Avila was se en today for an audiologic evaluation due to long-standing/gradu al hearing loss. She denies any significant communication disruptions, however, she feels as though her hearing isn't as sharp as it once was. She denies tinnitus, dizziness, drainage, aural fullness/pressure, and ear pain. Excessive noise exposure includes agricultural noise. Family hx of hearing loss includes her brother (wears hearing aids). Otoscopic inspection was unremarkable bilaterally. Audiometric testing revealed a mild, sloping to moderate high freq SNHL bilaterally with good word rec scores. 1-Discussed findings with Ms. Avila. 2-Rec annual hearing testing to monitor. RAULITO PETERSEN, AUD [address] [facility], [place], [address], [facility] [place] & [place] 09/05/2024 14:46:34 OBGyn Episode No OBEpisode recorded.
--- OUTSIDE RECORDS SUMMARY | 2025-01-23 09:12 | XMS_ITS | Clinical Summary ---
Author Organization [facility] Address [address] [place] [phone] Phone Care Team Providers Care Color Dipper Name Role Phone Justine KESSLER, Shaka Primary Care Physician [phone] Conditions or Problems Problem Name Problem Code Onset Date Status Entry Date Provider Comment Standard Description Annotate PAP SMEAR, LGSIL, ABNORMAL [id number] (SNOMED CT) Active Shaka Fletcher MD Abnormal cytology findings FAMILY PLANNING [id number] (SNOMED CT) Active Shaka Fletcher MD Contraception care Medications Medication Instructions Start Date Stop Date Generic Name NDC Provider Observed no known medication s at Medications Administered No information available. Allergies, Adverse Reactions, Alerts Allergy Name Reaction Description Start Date Severity Statu s Provider PCN Critical Active Shaka liao MD Results Date Name Value Unit Range Flag Description Office Visit: colpo rm 3 SQUAM EPITH fully visualized /[LPF] squamous epithelial cells HCG PREG UR neg Choriogon adotropin ( test) [Presence] in Urine Append: DISABILITY AIDE Visit Type PREG TST URN negative beta HC G, urine, semiquantitative Plan of Care Type Date Detail Pending order Test Pending order Colposcopy w Bx and [place]rett[place] Pending order Tissue Biopsy Procedures Code Procedure Name Date Entry Date CPT-64070 Colposcopy w Bx and [place]rettage [facility] Tissue Biopsy CPT-86086 Test Vital Signs Date Name Value Unit Description BMI (Body Mass Index) 26.24 kg/m2 Bod y Mass Index (Ratio) Body Temperature 98.3 [degF] temperat ure E&M Body Temperature 36.8 Goldie temperat ure in centigrade E&M BP Diastolic 75 mm[Hg] blood pressu re, diastolic BP Systolic 123 mm[Hg] blood pressur e, systolic Heart Rate 68 /min pulse rate Height 66 [in_us] height E&M Height 167.64 cm height in cent imeters E&M Weight Measured 162 [lb_av] weight E& M Weight Measured 162 [lb_av] weight E& M Weight Measured 73.64 kg weight in kilograms E&M Immunizations Vaccine Administration Date Standard Description CVX Co de Dose gardasil 62 Unknown Advance Directives No information available.
--- OUTSIDE RECORDS SUMMARY | 2025-01-23 09:13 | XMS_ITS | Clinical Summary ---
Author Organization [facility] Address [address] [place] [address] Phone Care Team Providers Care Panel Machine Operator Name Role Phone Provider, Not In Epic Primary Care Provider Unav ailable Allergies Active Allergy Reactions Criticality Noted Date Comments Penicillins Swelling 11/01/2011 Sulfa (Sulfonamide Antibiotics) 11/06 Medications FLUoxetine (PROZAC) 40 mg capsule Take 40 mg by mouth daily. Active VITAMIN E, DL,TOCOPHERYL ACET, (VITAMIN E, DL, ACETATE, ORAL) Take by mouth daily. Active CALCIUM CARBONATE/VITAMI N D3 (VITAMIN D-3 ORAL) Take by mouth daily. Active CYANOCOBALAMIN, VITAMIN B-12, (VITAMIN B-12 ORAL) Take by mouth daily. Active Active Problems No known active problems Surgical History Surgery Date Site/Laterality Comments TUBAL LIGATION BACK SURGERY 2002 L5 Medical History Medical History Date Comments Alcohol abuse Social History Tobacco Use Types Packs/Day Years Used Date Smoking Tobacco: Every Day Cigarettes Tobacco Cessation:Ready to Q uit: Yes; Counseling Given: Yes Alcohol Use Standard Drinks/Week Comments Yes 0 (1 standard drink = 0.6 oz pur e alcohol) States was 30 days clean. Comments No Sex and Gender Information Value Date Recorded Sex Assigned at Not on file Legal Sex Female 3:59 AM EDT Gender Identity Not on file Sexual Orientation Not on file Obstetrics History Last Filed Vital Signs Vital Sign Reading Time Taken Comments Blood Pressure 105/65 01/13/2012 3:24 AM EDT Pulse 85 01/13/2012 3:24 AM EDT Temperature 36.2 C (97.2 F) 01/13/2012 12:18 AM EDT Respiratory Rate 17 01/13/2012 3:24 AM EDT Oxygen Saturation 97% 01/13/2012 3:24 AM EDT Inhaled Oxygen Concentration - - Weight 72.6 kg (160 lb) 01/13/2012 12:18 AM EDT Height 170.2 cm (5' 7 ) 11/22/2011 9:20 AM EDT Body Mass Index 25.06 11/22/2011 9:20 AM EDT Plan of Treatment Health Maintenance Due Date Last Done Comments Annual Wellness Exam 1969 DTaP/TDaP/Td (1 - Tdap) 1985 Hepatitis B Vaccine (1 of 3 - 19+ 3-dose series) 1985 Cologuard 2011 Colon Cancer Screening 2011 Colonoscopy 2011 FIT 2011 Sigmoidoscopy 2011 Virtual Colonography 2011 Pneumococcal Vaccine 50+ (1 of 1 - PCV) 02/02/2016 Zoster (1 of 2) 02/02/2016 COVID-19 Vaccine ( - 2023-2 5 season) 2024 Influenza Vaccine (Season Ended) 2025 Meningococcal B Vaccine Aged Out No l onger eligible based on patient's age to complete this topic Insurance [facility] [place] [facility] Care Teams Panel Machine Operator Relationship Specialty Start Date End Date Provider, Not In Epic PCP - General 11/20/11
--- NOTE | 2025-01-23 09:30 | CT_ITS ---
FINAL REPORT TECHNIQUE: Thin section axial images were obtained from the lung apices to the upper abdomen by computed tomography. Reformatted images were obtained and reviewed. This study was performed with techniques to keep radiation doses al low as reasonably achievable (ALARA). Individualized dose reduction techniques using automated exposure control or adjustment of mA and/or kV according to the patient's size were employed. CLINICAL HISTORY: lung cancer screening former smoker quit 1.5 years ago. smoked half ppd x 45 years COMPARISON: None FINDINGS: CHEST CT LOW DOSE 59-year-old female, former smoker who quit 1-1/2 years ago, [id number] history. CTDI vol (mGy): 2.90 DLP (mGy-cm): 108.64 There is no axillary adenopathy. There is no mediastinal or hilar mass or adenopathy. The heart is normal in size. There is no pericardial or pleural effusion. Calcified granulomas are present in the left lung base. Lung window images demonstrate no suspicious infiltrate or nodule. Limited images of the upper abdomen are unremarkable. IMPRESSION: Lung-RADS category 1. Recommend 12 month follow up low dose chest CT. Reviewed, Interpreted and Dictated by Alfredo Aragon MD Transcribed by Maria Fernanda Garcia Authenticated and . [facility]
== END 2025-01-23 23:59 | disposition home or self-care (01) ==
LOC: RAD 09:07
PROVIDERS: PCP Family Medicine; Visit Provider Family Medicine
DX: M85.852 Other specified disorders of bone density and structure, left thigh (principal); M85.851 Other specified disorders of bone density and structure, right thigh; M85.88 Other specified disorders of bone density and structure, other site; J98.4 Other disorders of lung; F17.210 Nicotine dependence, cigarettes, uncomplicated; Z78.0 Asymptomatic menopausal state; Z12.2 Encounter for screening for malignant neoplasm of respiratory organs
CPT/HCPCS: 71271; 77080